=== PATIENT | female | born 2000 | race Caucasian/White ===

== ENCOUNTER 2024-11-11 06:15 | Outpatient (REF) | payer OTHER, SELFPAY ==
--- NOTE | ~2024-11-11 | US_ITS ---
CLINICAL HISTORY: cramps bleeding x 10 days. Pt has Kyleena IUD Ultrasound of the female pelvis Comparison: None provided Technique: Grayscale ultrasound with assistance of color Doppler. Transabdominal scanning performed for overall anatomy. Transvaginal scanning performed for better anatomic delineation. Findings: Anteverted uterus measures 7.6 x 3.1 x 4.2 cm. Homogeneous myometrium. Thin endometrium, 1-2 mm in thickness. IUD is properly positioned in the endometrium. Normal cervix. Normal right ovary, 3.5 x 2.5 x 2.6 cm. No abnormal vascular flow. Normal left ovary, 3.2 x 2.2 x 1.6 cm. No abnormal vascular flow. No free fluid. Impression: Normal exam. This document has been electronically signed by: Smiley Avalos MD on 11/12/2024 11:40:21
== END 2024-11-11 06:16 | disposition home or self-care (01) ==
LOC: HO.UMASIMG 06:15
PROVIDERS: Visit Provider Nurse Practitioner Women's Health
DX: Z30.431 Encounter for routine checking of intrauterine contraceptive device (principal)
CPT/HCPCS: 76830; 76856

== ENCOUNTER → 2024-11-11 10:03 | Outpatient (BNV) | payer OTHER, SELFPAY | PROVIDERS: Visit Provider Radiology Diagnostic Radiology | DX: R25.2 Cramp and spasm (principal); N93.9 Abnormal uterine and vaginal bleeding, unspecified | CPT/HCPCS: 76830; 76856 ==